=== PATIENT | female | born 1980 | race Caucasian/White ===

== ENCOUNTER 2019-01-07 00:47 | Emergency (ER) | payer MEDICAID ==
--- NOTE | 2019-01-07 01:21 | EDM.PDOC ---
ED HPI GENERAL MEDICAL PROBLEM - General Chief Complaint: Abdominal Pain Stated Complaint: abdominal and back pain Time Seen by Provider: 01/07/19 01:00 Source of Information: Reports: Patient, Family History Limitations: Reports: No Limitations - History of Present Illness INITIAL COMMENTS - FREE TEXT/NARRATIVE: Patient is a 38-year-old female who came in to the ER with her complaining of epigastric abdominal pain states that yesterday she had pain similar to this but went to sleep and rested when she woke up the pain was gone today she was pain-free until around 9:30 PM when this started again and progressed to the point that the pain was 10 out of 10 patient describes the pain as cramping going to the back mostly on the right wrist patient has no history of abdominal surgery did have back surgery low back 5 years ago. 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 Therapy, NSAIDS, Other Medication(s) Upper Abdomen Pain Score (Numeric/FACES): 10 - Related Data Allergies Allergy/AdvReac Type Severity Reaction Status Date / Time No Known Drug Allergies Allergy none Verified 01/07/19 00:59 Home Meds: Home Meds Ibuprofen [Motrin] 600 mg PO Q6H #20 tab 10/12/18 [Rx] Metaxalone [Skelaxin] 800 mg PO TID PRN #15 tab 10/12/18 [Rx] traMADol [Ultram] 50 mg PO Q6H PRN #15 tab 10/12/18 [Rx] Calcium Carbonate [Tums] 2 tab PO ONETIME 01/07/19 [History] Past Medical History HEENT History: Reports: Impaired Vision Respiratory History: Reports: Other (See Below) Other Respiratory History: recent fungal pneumonia bilateral Gastrointestinal History: Reports: Chronic Constipation Genitourinary History: Reports: None [employer]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: Endometrial Ablation, Polycystic Ovaries, Spontaneous Musculoskeletal History: Reports: Back Pain, Chronic Neurological History: Reports: None Endocrine/Metabolic History: Reports: Obesity/BMI 30+ - Past Surgical History Head Surgeries/Procedures: Reports: None HEENT Surgical History: Reports: None Respiratory Surgical History: Reports: None GI Surgical History: Reports: None Female Surgical History: Reports: Tubal Ligation Endocrine Surgical History: Reports: None Neurological Surgical History: Reports: Lumbar Spine Musculoskeletal Surgical History: Reports: None Social & Family History - Family History Family Medical History: Noncontributory - Caffeine Use Caffeine Use: Reports: Soda ED ROS GENERAL - Review of Systems Review Of Systems: See Below Constitutional: Reports: No Symptoms HEENT: Reports: No Symptoms Respiratory: Reports: No Symptoms Cardiovascular: Reports: No Symptoms Endocrine: Reports: No Symptoms GI/Abdominal: Reports: No Symptoms : Reports: No Symptoms Musculoskeletal: Reports: No Symptoms Skin: Reports: No Symptoms Neurological: Reports: No Symptoms Psychiatric: Reports: No Symptoms Hematologic/Lymphatic: Reports: No Symptoms Immunologic: Reports: No Symptoms ED EXAM, GI/ABD - Physical Exam Exam: See Below Exam Limited By: No Limitations General Appearance: Alert, WD/WN, No Apparent Distress Eyes: Bilateral: Normal Appearance, EOMI Ears: Normal External Exam, Normal Canal, Hearing Grossly Normal, Normal TMs Nose: Normal Inspection, Normal Mucosa, No Blood Throat/Mouth: Normal Inspection, Normal Lips, Normal Teeth, Normal Gums, Normal Oropharynx, Normal Voice, No Airway Compromise Head: Atraumatic, Normocephalic Neck: Normal Inspection, Supple, Non-Tender, Full Range of Motion Respiratory/Chest: No Respiratory Distress, Lungs Clear, Normal Breath Sounds, No Accessory Muscle Use, Chest Non-Tender Cardiovascular: Normal Peripheral Pulses, Regular Rate, Rhythm, No Edema, No Gallop, No JVD, No Murmur, No Rub GI/Abdominal Exam: Normal Bowel Sounds, Soft, Tender (Female) Exam: Deferred Rectal (Female) Exam: Deferred Back Exam: Decreased Range of Motion Extremities: Normal Inspection, Normal Range of Motion, Non-Tender, Normal Capillary Refill, No Pedal Edema Neurological: Alert, Oriented, CN II-XII Intact, Normal Cognition, Normal Gait, Normal Reflexes, No Motor/Sensory Deficits Psychiatric: Normal Affect, Normal Mood Skin Exam: Warm, Dry, Intact, Normal Color, No Rash Course - Vital Signs Last Recorded V/S: Last Vital Signs Temp 98.2 F 01/07/19 00:52 Pulse 71 01/07/19 00:52 Resp 20 01/07/19 00:52 BP 148/71 H 01/07/19 00:52 Pulse Ox 100 01/07/19 00:52 - Orders/Labs/Meds Orders: Active Orders 24 hr Category Date Time Status Abdomen Pelvis w Cont [CT] Stat Exams 01/07/19 01:15 Taken Sodium Chloride 0.9% [Normal Saline] 1,000 ml Med 01/07/19 01:15 Active IV ASDIRECTED Sodium Chloride 0.9% [Saline Flush] Med 01/07/19 01:12 Active 10 ml FLUSH ASDIRECTED PRN Saline Lock Insert [OM.PC] Stat Oth 01/07/19 01:12 Ordered Medication Orders Sodium Chloride (Normal Saline) 1,000 mls @ 250 mls/hr IV ASDIRECTED KEVIN Last Admin: 01/07/19 01:27 Dose: 250 mls/hr Sodium Chloride (Saline Flush) 10 ml FLUSH ASDIRECTED PRN PRN Reason: Keep Vein Open Last Admin: 01/07/19 01:30 Dose: 10 ml Labs: Laboratory Tests 01/07/19 01/07/19 Range/Units 01:15 01:15 WBC 8.0 (4.0-10.2) K/uL RBC 4.58 (3.77-5.09) M/uL Hgb 12.7 (11.7-15.5) g/dL Hct 37.8 (34.0-46.0) % MCV 82.5 L (84.0-98.0) fL MCH 27.7 L (28.2-33.3) pg MCHC 33.6 (31.7-36.0) g/dL RDW 15.0 H (11.2-14.1) % Plt Count 224 (150-350) K/uL Neut % (Auto) 72.2 (45.0-80.0) % Lymph % (Auto) 19.6 (10.0-50.0) % [place] % (Auto) 6.5 (2.0-14.0) % Eos % (Auto) 1.4 (0.0-5.0) % Baso % (Auto) 0.3 (0.0-2.0) % Neut # (Auto) 5.77 (1.40-7.00) K/uL Lymph # (Auto) 1.57 (0.50-3.50) K/uL [place] # (Auto) 0.52 (0.00-1.00) K/uL Eos # (Auto) 0.11 (0.00-0.50) K/uL Baso # (Auto) 0.02 (0.00-0.20) K/uL Sodium 139 (136-145) mmol/L Potassium 3.8 (3.5-5.1) mmol/L Chloride 105 (98-107) mmol/L Carbon Dioxide 23.9 (21.0-32.0) mmol/L BUN 11 (7-18) mg/dL Creatinine 0.80 (0.51-1.17) mg/dL Est Cr Clr Drug Dosing TNP Estimated GFR (MDRD) > 60 mL/min Glucose 113 H (74-106) mg/dL Calcium 8.7 (8.5-10.1) mg/dL Total Bilirubin 0.4 (0.2-1.0) mg/dL AST 16 (15-37) U/L ALT 19 (12-78) U/L Alkaline Phosphatase 89 (46-116) IU/L Total Protein 6.8 (6.4-8.2) g/dL Albumin 3.4 (3.4-5.0) g/dL Amylase 44 (25-115) U/L Lipase 179 (73-393) U/L Meds: Medications Generic Name Dose Route Start Last Admin Trade Name Freq PRN Reason Stop Dose Admin Sodium Chloride 1,000 mls @ 250 mls/hr 01/07/19 01:15 01/07/19 01:27 Normal Saline IV 250 mls/hr ASDIRECTED KEVIN Administration Sodium Chloride 10 ml 01/07/19 01:12 01/07/19 01:30 Saline Flush FLUSH 10 ml ASDIRECTED PRN Administration Keep Vein Open Discontinued Medications Generic Name Dose Route Start Last Admin Trade Name Freq PRN Reason Stop Dose Admin Iopamidol 100 ml 01/07/19 03:00 01/07/19 03:26 Isovue-300 (61%) IVPUSH 01/07/19 03:01 100 ml ONETIME ONE Administration Pantoprazole Sodium 40 mg 01/07/19 20:00 Protonix Iv IVPUSH BEDTIME KEVIN Pantoprazole Sodium 40 mg 01/07/19 01:27 01/07/19 01:33 Protonix Iv IVPUSH 01/07/19 01:28 40 mg ONETIME ONE Administration Departure - Departure Time of Disposition: 03:59 Disposition: Home, Self-Care 01 Condition: Fair Clinical Impression: Acute calculous cholecystitis Abdominal pain Qualifiers: Abdominal location: lower abdomen, unspecified Qualified Code(s): R10.30 - Lower abdominal pain, unspecified - Discharge Information *PRESCRIPTION DRUG MONITORING PROGRAM REVIEWED*: No *COPY OF PRESCRIPTION DRUG MONITORING REPORT IN PATIENT JESUS: No Instructions: Cholelithiasis Referrals: Rina Escoto NP [Primary Care Provider] - Forms: ED Department Discharge Care Plan Goals: CT of abdomen revealed calculus at the neck of the gallbladder after speaking with radiologist I feel that this is the cause of her problem she has also a positive Garcia sign we will go ahead and schedule her for gallbladder ultrasound in the morning she is to follow-up with Rina. Patient is to go on a low to no fat diet until symptoms resolve. - My Orders Last 24 Hours: My Active Orders 01/07/19 01:12 Sodium Chloride 0.9% [Saline Flush] 10 ml FLUSH ASDIRECTED PRN Saline Lock Insert [OM.PC] Stat 01/07/19 01:15 Abdomen Pelvis w Cont [CT] Stat Sodium Chloride 0.9% [Normal Saline] 1,000 ml IV ASDIRECTED - Assessment/Plan Last 24 Hours: My Active Orders 01/07/19 01:12 Sodium Chloride 0.9% [Saline Flush] 10 ml FLUSH ASDIRECTED PRN Saline Lock Insert [OM.PC] Stat 01/07/19 01:15 Abdomen Pelvis w Cont [CT] Stat Sodium Chloride 0.9% [Normal Saline] 1,000 ml IV ASDIRECTED
[2019-01-07] MEDS: Sodium Chloride 0.9% 1,000 ML IV SCH (01:27)
[2019-01-07] MEDS: Sodium Chloride 0.9% 10 ML Syringe FLUSH PRN (01:30)
[2019-01-07] MEDS: Pantoprazole 40 MG Vial IVPUSH ONE (01:33)
[2019-01-07 01:48] LABS: CHLORIDE,CL 105 mmol/L (98-107); SODIUM,NA 139 mmol/L (136-145)
[2019-01-07] MEDS: Iopamidol 612 MG/ML 100 ML Bottle IVPUSH ONE (03:26)
[2019-01-07] MEDS ORDERED: Pantoprazole 40 MG Vial IVPUSH SCH (20:00)
== END 2019-01-07 04:20 | disposition home or self-care (01) ==
LOC: LL.ED 00:47
DX: K80.00 Calculus of gallbladder with acute cholecystitis without obstruction (principal); Z79.899 Other long term (current) drug therapy; R10.9 Unspecified abdominal pain; K81.9 Cholecystitis, unspecified; K82.8 Other specified diseases of gallbladder
CPT/HCPCS: 36415; 74177; 76700; 80053; 82150; 83690; 85025; 96361; 96374; 99284-25; C9113; J7030; Q9967

== ENCOUNTER 2019-12-27 14:34 | Emergency (ER) | payer MEDICAID, OTHER ==
[2019-12-27 15:11] LABS: CHLORIDE,CL 106 mmol/L (98-107); SODIUM,NA 141 mmol/L (136-145)
[2019-12-27] MEDS ORDERED: Magnesium Oxide 400 MG Tab PO ONE (15:53)
--- NOTE | 2019-12-27 15:53 | EDM.PDOC ---
ED HPI GENERAL MEDICAL PROBLEM - General Chief Complaint: Abdominal Pain Stated Complaint: left lower abd pain, ?kidney stone Time Seen by Provider: 12/27/19 14:42 Source of Information: Reports: Patient History Limitations: Reports: No Limitations - History of Present Illness INITIAL COMMENTS - FREE TEXT/NARRATIVE: Patient complains of sudden sharp lower left abdominal pain that started around 1-1:30. 10/10 initially. Came to ER around 1500, pain improved to a 2 at time of interview. Hx of similar pain around 3 times a year per patient. Very sharp then proceeds to change to a dull ache, then resolves. Normal day for patient today before pain. No other complaints. Finished menstrual cycle last week. 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: Endometrial Ablation, Polycystic Ovaries, Spontaneous Musculoskeletal History: Reports: Back Pain, Chronic Neurological History: Reports: None Endocrine/Metabolic History: Reports: Obesity/BMI 30+ - Past Surgical History Head Surgeries/Procedures: Reports: None HEENT Surgical History: Reports: None Respiratory Surgical History: Reports: None GI Surgical History: Reports: None Female Surgical History: Reports: Tubal Ligation Endocrine Surgical History: Reports: None Neurological Surgical History: Reports: Lumbar Spine Musculoskeletal Surgical History: Reports: None Social & Family History - Family History Family Medical History: Noncontributory - Caffeine Use Caffeine Use: Reports: Soda ED ROS GENERAL - Review of Systems Review Of Systems: See Below Constitutional: Reports: No Symptoms HEENT: Reports: No Symptoms Respiratory: Reports: No Symptoms Cardiovascular: Reports: No Symptoms GI/Abdominal: Reports: Abdominal Pain. Denies: Constipation, Diarrhea, Distension, Hematochezia, Nausea, Vomiting : Reports: No Symptoms Musculoskeletal: Reports: No Symptoms Skin: Reports: No Symptoms Neurological: Reports: No Symptoms Psychiatric: Reports: No Symptoms Hematologic/Lymphatic: Reports: No Symptoms ED EXAM, GENERAL - Physical Exam Exam: See Below Exam Limited By: No Limitations General Appearance: Alert, No Apparent Distress, Obese Eye Exam: Bilateral Eye: Foreign Body, PERRL Ears: Hearing Grossly Normal Nose: No: Nasal Deformity, Nasal Swelling, Nasal Drainage Throat/Mouth: Normal Lips, Normal Voice, No Airway Compromise Head: Atraumatic, Normocephalic Neck: Supple Respiratory/Chest: No Respiratory Distress, Lungs Clear, Normal Breath Sounds, No Accessory Muscle Use, Chest Non-Tender Cardiovascular: Regular Rate, Rhythm, No Murmur GI/Abdominal: Normal Bowel Sounds, Soft, Tender (tenderness noted lower mid abdomen, left greater than right). No: Guarding, Rigid, Rebound (Female) Exam: Deferred Rectal (Female) Exam: Deferred Back Exam: No: CVA Tenderness (L), CVA Tenderness (R), Muscle Spasm, Paraspinal Tenderness, Vertebral Tenderness Extremities: Normal Range of Motion, Non-Tender, Normal Capillary Refill Neurological: Alert, Oriented, Normal Cognition, Normal Gait, No Motor/Sensory Deficits Psychiatric: Normal Affect, Normal Mood Skin Exam: Warm, Dry, Intact, Normal Color Course - Vital Signs Last Recorded V/S: Last Vital Signs Temp 36.2 C 12/27/19 14:35 Pulse 72 12/27/19 14:35 Resp 18 12/27/19 14:35 BP 125/65 12/27/19 14:35 Pulse Ox 100 12/27/19 14:35 - Orders/Labs/Meds Orders: Active Orders 24 hr Category Date Time Status Pelvis Non OB Comp [US] Stat Exams 12/27/19 14:44 Ordered Transvaginal Non OB [US] Routine Exams 12/27/19 14:56 Ordered UA W/MICROSCOPIC [URIN] Stat Lab 12/27/19 14:44 Ordered Labs: Laboratory Tests 12/27/19 12/27/19 12/27/19 Range/Units 14:51 14:51 14:51 WBC 6.4 (4.0-10.2) K/uL RBC 4.57 (3.77-5.09) M/uL Hgb 12.4 (11.7-15.5) g/dL Hct 38.2 (34.0-46.0) % MCV 83.6 L (84.0-98.0) fL MCH 27.1 L (28.2-33.3) pg MCHC 32.5 (31.7-36.0) g/dL RDW 14.7 H (11.2-14.1) % Plt Count 226 (150-350) K/uL Neut % (Auto) 68.7 (45.0-80.0) % Lymph % (Auto) 23.3 (10.0-50.0) % [place] % (Auto) 6.3 (2.0-14.0) % Eos % (Auto) 1.4 (0.0-5.0) % Baso % (Auto) 0.3 (0.0-2.0) % Neut # (Auto) 4.36 (1.40-7.00) K/uL Lymph # (Auto) 1.48 (0.50-3.50) K/uL [place] # (Auto) 0.40 (0.00-1.00) K/uL Eos # (Auto) 0.09 (0.00-0.50) K/uL Baso # (Auto) 0.02 (0.00-0.20) K/uL Sodium 141 (136-145) mmol/L Potassium 3.8 (3.5-5.1) mmol/L Chloride 106 (98-107) mmol/L Carbon Dioxide 26.8 (21.0-32.0) mmol/L BUN 9 (7-18) mg/dL Creatinine 0.84 (0.51-1.17) mg/dL Est Cr Clr Drug Dosing TNP Estimated GFR (MDRD) > 60 mL/min Glucose 98 (74-106) mg/dL Calcium 8.9 (8.5-10.1) mg/dL Magnesium 1.6 L (1.8-2.4) mg/dL Total Bilirubin 0.5 (0.2-1.0) mg/dL AST 14 L (15-37) U/L ALT 16 (12-78) U/L Alkaline Phosphatase 93 (46-116) IU/L Total Protein 6.7 (6.4-8.2) g/dL Albumin 3.4 (3.4-5.0) g/dL HCG, Qual Negative (NEGATIVE) Meds: Medications Discontinued Medications Generic Name Dose Route Start Last Admin Trade Name Freq PRN Reason Stop Dose Admin Magnesium Oxide 800 mg 12/27/19 15:53 12/27/19 16:07 Magnesium Oxide PO 12/27/19 15:54 800 mg ONETIME ONE Administration - Re-Assessments/Exams Free Text/Narrative Re-Assessment/Exam: 12/27/19 15:53 HCG negative. WBC normal. Mag slightly low. US to look for ruptured ovarian cyst ordered. 12/27/19 16:33 Pain almost resolved. Preliminary US results note that there appears to be collapsing cyst in left ovary. Additional cysts noted both left and right ovary. Some free fluid. Official Radiology review pending. Exam limited by patient's obesity. Results discussed with patient. Given the rapidly improving pain/history of sudden sharp pain/exam and US findings, episode likely due to sudden rupture of left sided ovarian cyst. Precautions reviewed. To follow up as needed if she has additional problems/concerns. Possibility of PCO discussed with pt, to follow up with primary provider. Departure - Departure Time of Disposition: 16:30 Disposition: Home, Self-Care 01 Condition: Good Clinical Impression: Ruptured cyst of left ovary, Hypomagnesemia - Discharge Information *PRESCRIPTION DRUG MONITORING PROGRAM REVIEWED*: Not Applicable *COPY OF PRESCRIPTION DRUG MONITORING REPORT IN PATIENT JESUS: Not Applicable Instructions: Ovarian Cyst Referrals: PCP,Unknown [Ordering Only Provider] - Forms: ED Department Discharge Additional Instructions: Watch for changes. Call if you have questions. Follow up as needed if you have additional problems develop. Start Mag supplement 250-500md daily Sepsis Event Note - Evaluation Sepsis Screening Result: No Definite Risk - Focused Exam Vital Signs: Vital Signs Temp Pulse Resp BP Pulse Ox 12/27/19 14:35 36.2 C 72 18 125/65 100 Date Exam was Performed: 12/27/19 Time Exam was Performed: 16:39 - My Orders Last 24 Hours: My Active Orders 12/27/19 14:44 Pelvis Non OB Comp [US] Stat UA W/MICROSCOPIC [URIN] Stat 12/27/19 14:56 Transvaginal Non OB [US] Routine - Assessment/Plan Last 24 Hours: My Active Orders 12/27/19 14:44 Pelvis Non OB Comp [US] Stat UA W/MICROSCOPIC [URIN] Stat 12/27/19 14:56 Transvaginal Non OB [US] Routine
== END 2019-12-27 16:39 | disposition home or self-care (01) ==
LOC: LL.ED 14:34
DX: N83.202 Unspecified ovarian cyst, left side (principal); E83.42 Hypomagnesemia; E66.9 Obesity, unspecified
CPT/HCPCS: 36415; 76830; 76856; 80053; 81001; 83735; 84703; 85025; 99284-25; A9270-GY